=== PATIENT | female | born 1945 | race Caucasian/White ===

== ENCOUNTER 2019-05-17 12:27 | Observation (INO) | payer MEDICARE, OTHER, SELFPAY ==
[2019-05-17] VITALS (10 sets, daily range): BP systolic 116–158; BP diastolic 45–79; PULSE 68–102; RESP 14–18; TEMP 36.4–38.7; O2SAT 94–97
--- NOTE | 2019-05-17 13:04 | DI.CT_ITS ---
EXAM: CT NECK W CLINICAL HISTORY: Left throat swelling TECHNIQUE: Dual injection of 100 mL of Omnipaque 350 COMPARISON: No exams were available for comparison FINDINGS: There is swelling of the soft tissues in the neck from the level of the uvula inferiorly to just belo w the hyoid bone; findings are most marked at the left and posteriorly. There is a 2 x 1.4 x 1.7 cm fluid collection in the left parapharyngeal space consistent with an abscess. There does appear to b e narrowing of the airway at the level of the hyoid bone. The parotid and submandibular glands are unremarkable. The thyroid gland is unremarkable. Mildly enlarged lymph nodes are seen in the left neck. These are likely reactive. The arteries appear grossly unremarkable. There is mild mucosal thickening in the right maxillary sinus. The remaining visualized paranasal si nuses are clear as are the mastoid air cells. Mild to moderate degenerative changes are seen in the cervical spine. The findings are most marked a t C5-C6. There is edema seen in the soft tissues in the submandibular region. IMPRESSION: Soft tissue swelling in hypopharynx and laryngeal region. The findings are most marked on the left a nd posteriorly. There is rightward deviation and narrowing of the airway at the level of the hyoid b one. There is a 2 cm fluid collection in the left soft tissues between the uvula and epiglottis consistent with an abscess. Soft tissue edema in the left neck with reactive lymph nodes. These findings were discussed with Dr. Mckeon of the Emergency Department on the date of the examinat
[2019-05-17] MEDS: Normal Saline 1,000 ML 1000 ML IV (13:10)
[2019-05-17] MEDS: Ketorolac 15 MG/ML VIAL IVP (13:22)
[2019-05-17 13:26] LABS: Abs Immature Grans 0.04 k/cumm (0.0-0.09); Absolute Basophil Count 0.02 k/cumm (0.0-0.2); Absolute Eosinophil Count 0.03 k/cumm (0.0-0.7); Absolute Lymphocyte Count 1.23 k/cumm (1.2-3.4); Absolute Monocyte Count 0.57 k/cumm (0.11-0.7); Absolute Neutrophil Count 8.16 k/cumm (1.2-6.7); Basophils % 0.2; Eosinophils % 0.3; HCT 38.3 % (36.0-46.0); HGB 12.4 g/dL (12.0-15.5); Immature Grans % 0.4; Lymphocytes % 12.2; Mean Corp. HGB Concentration 32.4 g/dL (32.0-36.0); Mean Corpuscular Hemoglobin 30.5 pg (27.0-33.0); Mean Corpuscular Volume 94.1 fL (80-95); Mean Platelet Volume 9.8 fL (8.0-11.0); Monocytes % 5.7; Neutrophils % 81.2; Platelet Count 225 x1000/uL (130-400); RBC 4.07 m/cumm (4.00-5.20); RBC Distribution Width 13.6 % (11.7-14.6); White Blood Cell Count 10.05 k/cumm (4.4-10.8)
[2019-05-17] MEDS: ACETAMINOPHEN 1,000 MG/100 ML BTL 400 MG IVPB (13:27)
[2019-05-17] MEDS: AMPICILLIN/SULBACTAM 3 GM in Normal Saline 100 ML IVPB ×2 (13:40→20:47)
[2019-05-17 13:45] LABS: ALT 50 U/L (14-59); AST 25 U/L (15-37); Albumin 3.4 g/dL (3.4-5.0); Alkaline Phosphatase 120 U/L (46-116); Anion Gap 6.5 mmol/L (3-11); BUN 12 mg/dL (7-18); Bilirubin, Total 1.1 mg/dL (0.2-1.0); CO2 28.5 mmol/L (21.0-32.0); CREATININE 0.75 mg/dL (0.55-1.02); Calcium 8.7 mg/dL (8.5-10.1); Chloride 103 mmol/L (98-107); Glucose 87 mg/dL (70-100); Potassium 3.8 mmol/L (3.5-5.1); Sodium 138 mmol/L (136-145); Total Protein 7.4 g/dL (6.4-8.2)
--- NOTE | 2019-05-17 13:53 | ED.GENADUL_ITS ---
Discharge Plan Disposition Condition: Stable Discharge Details Chief Complaint: Sorethroat Admit Date/Time: 05/17/19 17:34 Admit Provider: Ej Guerrero Attending Provider: Deon Sagastume Primary Care Provider: Gila Lawrence V ED Provider: Lila Villanueva Discharge Instructions Activity:: Activity as Tolerated Equipment/Supplies:: No Equipment Needed Diet:: As Tolerated Discharge Orders Discharge Orders: Discharge Order (Routine); Ordered 05/18/19 Ordered By: Deon Sagastume Discharge Data Discharge Date/Time-TO BE ENTERED AT DEPARTURE: 05/17/19 18:15 Medical Decision Making <Oz Mckeon MD - Last Filed: 06/16/19 16:31> 14:00 -- 74-year-old female here with left-sided sore throat, left neck lymphadenopathy and left TM inflammation. Tachycardic and mildly dehydrated. Concern for otitis media versus deep space infection. Plan to treat with Tylenol IV, Toradol IV, Decadron PO. IV fluid bolus for dehydration. Will initiate treatment with Unasyn IV. Will obtain CT of the neck. 15:00 -- CT interpreted by radiology: left peritonsilar abscess 2cm x 1.4cm superior to left epiglottis. I called and spoke with Dr. Mercado, discussed ED presentation and course, who will review CT and call back. -- Spoke with Dr. Mercado who will be in to evaluate the patient. Care signed out to SANDRA Brand with plan to follow-up recognitions from ENT. <SANDRA Flores - Last Filed: 05/17/19 19:49> Care was signed out to myself from Dr. Mckeon with consultation pending. Dr. Mercado evaluated the patient was able to do a bedside scope. Noted left-sided vocal cord paralysis and edema of the vocal cords and surrounding structures. He does not feel that the exam and CT are consistent with abscess at this time. However, he is concerned that there is phlegm developing and did recommend admission for continued antibiotics. Patient is clinically feeling much improved after the IV dexamethasone. Dr. Mercado was also concern for edema of the uvula and a left-sided mass at the base of the tongue. He does wish to follow-up with this patient as he is concerned that a cancerous etiology is not been ruled out is unclear as to why she has a left-sided vocal cord paralysis. However, he feels that the acute issue is more of supraglottitis and recommended patient be admitted for Unasyn. If the patient is stable and not requiring further antibiotics tomorrow as recommended discharge with continued Augmentin for a total 10-day course. He would like to follow-up with the patient next week. I discussed this plan with the patient and her in depth. They voiced understanding and are agreeable to this plan. Consulted with Dr. Guerrero who agrees to admission. HPI <Oz Mckeon MD - Last Filed: 06/16/19 16:31> General Mode of arrival: ambulatory . Date/Time Provider Initiated Documentation: 05/17/19 12:34 . Limitations to Documentation: no limitations . Information obtained by: patient . HPI Narrative: 74-year-old female presents with chief complaint of sore throat. Patient notes left sided sore throat that started 3 days ago and has persisted. She has associated left ear pain. Pain is moderate to severe and worse with swallowing. She has associated fever. Related Data Home Medications Medication Instructions Recorded Confirmed epinephrine [Epipen 2-Papa] 0.3 mg IJ DIRECTED #1 pkt 02/16/15 05/17/19 amoxicillin-pot clavulanate 1 tab PO BID #19 tab 05/18/19 [Augmentin] Previous Rx's Medication Instructions Recorded epinephrine [Epipen 2-Papa] 0.3 mg IJ DIRECTED #1 pkt 02/16/15 amoxicillin-pot clavulanate 1 tab PO BID #19 tab 05/18/19 [Augmentin] Allergies Allergy/AdvReac Type Severity Reaction Status Date / Time shellfish derived Allergy Severe Anaphylaxsi Unverified 05/17/19 12:37 s venom-honey bee AdvReac Severe Anaphylaxsi Unverified 05/17/19 12:37 [bee venom (honey bee)] s stings Allergy Severe anaphylaxis Uncoded 05/17/19 12:37 General Stated Complaint: Sorethroat SEAN: 3 Review of Systems <Oz Mckeon MD - Last Filed: 06/16/19 16:31> Constitutional Constitutional: Reports fever(s) ENT Ears, Nose, Mouth, and Throat: Reports otalgia and Reports sore throat Integumentary/Breasts Skin/Breast: Denies rash PFSH <Oz Mckeon MD - Last Filed: 06/16/19 16:31> Social History Smoking/Tobacco Use Status: Never Alcohol Intake: current Alcohol Intake frequency: holidays/special occasions only Drug use: Never Do you feel safe at home: Yes Do you feel safe in your relationship?: Yes Exam <Oz Mckeon MD - Last Filed: 06/16/19 16:31> Const General: cooperative and no acute distress HENMT Ears: external ears normal, mastoids normal, no periauricular adenopathy and TM abnormal bulging on the right and erythematous on the right General nose exam: external nose normal Mouth: mucous membranes dry Teeth and gingiva: dentition normal Throat: uvula midline, posterior oropharynx abnormal erythema (left); no edema and no exudates, no uvular edema and other (no stridor, no trismus) Eyes Conjunctivae: normal conjunctivae Sclera: normal sclerae Neck Neck: trachea midline and supple Resp Auscultation: clear to auscultation bilaterally, no rales, no rhonchi and no wheezes Cardio Jugular venous pressure: no JVD Rate: tachycardic Rhythm: regular rhythm GI Palpation: soft, not firm, no guarding, no masses, not rigid and nontender Skin General skin exam: no rashes or lesions noted Neuro General: alert, awake and tone normal Course <Oz Mckeon MD - Last Filed: 06/16/19 16:31> Vital Signs Vital signs: Vital Signs Temperature 38.7 C H 05/17/19 12:31 Pulse 102 H 05/17/19 12:31 Respiratory Rate 18 05/17/19 12:31 Blood Pressure 158/71 H 05/17/19 12:31 Pulse Oximetry 95 05/17/19 12:31 Temperature 38.7 C H 05/17/19 13:22 Temperature Source Temporal Artery Scan 05/17/19 12:31 Pulse 102 H 05/17/19 12:31 Respiratory Rate 18 05/17/19 12:31 Respiratory Effort Non-Labored 05/17/19 12:35 Blood Pressure 158/71 H 05/17/19 12:31 Blood Pressure Position Sitting 05/17/19 12:31 Pulse Oximetry 95 05/17/19 12:31 Oxygen Delivery Method Room Air 05/17/19 12:31 Oxygen Flow Rate 0 05/17/19 12:31 Pain Level 9 05/17/19 13:22 Lab/Test Results Lab/Test Results: 05/17/19 12:20 Pharynx Streptococcus Screen ([facility]) - Pending Laboratory Tests Range/Units 05/17/19 05/17/19 13:10 13:10 WBC (4.4-10.8) k/cumm 10.05 RBC (4.00-5.20) m/cumm 4.07 Hgb (12.0-15.5) g/dL 12.4 Hct (36.0-46.0) % 38.3 MCV (80-95) fL 94.1 MCH (27.0-33.0) pg 30.5 MCHC (32.0-36.0) g/dL 32.4 RDW (11.7-14.6) % 13.6 Plt Count (130-400) x1000/uL 225 MPV (8.0-11.0) fL 9.8 Immature Gran % 0.4 Neutrophils % 81.2 Lymphocytes % 12.2 Monocytes % 5.7 Eosinophils % 0.3 Basophils % 0.2 Absolute Neutrophils (1.2-6.7) k/cumm 8.16 H Absolute Lymphocytes (1.2-3.4) k/cumm 1.23 Absolute Monocytes (0.11-0.7) k/cumm 0.57 Absolute Eosinophils (0.0-0.7) k/cumm 0.03 Absolute Basophils (0.0-0.2) k/cumm 0.02 Sodium (136-145) mmol/L 138 Potassium (3.5-5.1) mmol/L 3.8 Chloride (98-107) mmol/L 103 Carbon Dioxide (21.0-32.0) mmol/L 28.5 Anion Gap (3-11) mmol/L 6.5 BUN (7-18) mg/dL 12 Creatinine (0.55-1.02) mg/dL 0.75 Estimated GFR/1.73 m2 (mL/min/1.73m2) >= 60.00 Glucose (70-100) mg/dL 87 Calcium (8.5-10.1) mg/dL 8.7 Total Bilirubin (0.2-1.0) mg/dL 1.1 H AST (15-37) U/L 25 ALT (14-59) U/L 50 Alkaline Phosphatase (46-116) U/L 120 H Total Protein (6.4-8.2) g/dL 7.4 Albumin (3.4-5.0) g/dL 3.4 POC Strep Test-TILA(Rapid) Start: 05/17/19 12:44 Freq: .Rapid Strep Test Status: Active Protocol: Document 05/17/19 12:51 [facility] [place]: 05/17/19 12:51 [facility] [id number] Strep test-TILA(Rapid)-POC POC-Strep test-TILA (Rapid) Negative POC-Strep test-TILA (Rapid) Negative Sign Out <Oz Mckeon MD - Last Filed: 06/16/19 16:31> Sign Out Data: Sign Out Comment: Patient signed out to SANDRA Brand with plan to follow-up recommendations from ENT. Dr. Mercado coming in to see the patient. Last updated by Oz Mckeon MD at 05/17/19 16:38
[2019-05-17] MEDS: Dexamethasone 10 MG/ML VIAL PO (13:59)
[2019-05-17] MEDS: Omnipaque 350 MG/ML 100 ML BTL IJ (14:24)
[2019-05-17] MEDS: Lactated Ringers 1,000 ML 1000 ML IV (16:48)
--- NOTE | 2019-05-17 17:22 | W.PM.HP.N ---
Date of service: 05/17/19 Time of Service: 17:22 Assessment and Plan Assessment and plan (1) Pharyngitis: Status: Acute Assessment and plan: Pharyngitis. Will continue Unasyn per ENT recommendation. No further steroids advised. History of Present Illness History of Present Illness Chief Complaint: sore throat Narrative: 74 female here with four days sore throat. In ER evaluation of note for fever to 38.[address] demonstrating question abcess. Seen by ENT. Laryngosccopy reported to show diffuse edema but widely patent airway and findngs suggestive more of phlegmon than abcess. Left ccord paralysis notedd as well. Gonzalot received 10 Dexamethasone and initial dose Unasyn States she feels much better. ENT has requested overnight IV antibotics then presumably home on oral and f/u with ENT. The question is raised as to what the cord paralysis may indicate, perhaps some underlying lesion predisposing to current infection -- but this is to be determined with f/u with ENT. Review of Systems All systems reviewed & are unremarkable except as noted in HPI and below PFSH Social History Smoking/Tobacco Use Status: Never Alcohol Intake: current Alcohol Intake frequency: holidays/special occasions only Drug use: Never Do you feel safe at home: Yes Do you feel safe in your relationship?: Yes Meds Home Medications and Allergies Home Medications Medication Instructions Recorded Confirmed Type epinephrine [Epipen 2-Papa] 0.3 mg IJ DIRECTED #1 pkt 02/16/15 05/17/19 Rx Allergies Allergy/AdvReac Type Severity Reaction Status Date / Time shellfish derived Allergy Severe Anaphylaxsi Unverified 05/17/19 12:37 s venom-honey bee AdvReac Severe Anaphylaxsi Unverified 05/17/19 12:37 [bee venom (honey bee)] s stings Allergy Severe anaphylaxis Uncoded 05/17/19 12:37 Exam Narrative Exam Narrative: afebrile (Tmax 38.7), 129/55, 70. HEENT mild erythema left posteriorr oropharynx; no cervical nodes, but tender along left side of neck; lungs clear; hesart RRR w/o m/r/g; abdomen soft and NT; extr: w/o edema; neuro non0-focal Results Labs Result diagrams: 05/17/19 13:10 05/17/19 13:10 Labs: Laboratory Results - last 24 hr 05/17/19 05/17/19 13:10 13:10 WBC 10.05 RBC 4.07 Hgb 12.4 Hct 38.3 MCV 94.1 MCH 30.5 MCHC 32.4 RDW 13.6 Plt Count 225 MPV 9.8 Immature Gran % 0.4 Neutrophils % 81.2 Lymphocytes % 12.2 Monocytes % 5.7 Eosinophils % 0.3 Basophils % 0.2 Absolute Neutrophils 8.16 H Absolute Lymphocytes 1.23 Absolute Monocytes 0.57 Absolute Eosinophils 0.03 Absolute Basophils 0.02 Sodium 138 Potassium 3.8 Chloride 103 Carbon Dioxide 28.5 Anion Gap 6.5 BUN 12 Creatinine 0.75 Estimated GFR/1.73 m2 >= 60.00 Glucose 87 Calcium 8.7 Total Bilirubin 1.1 H AST 25 ALT 50 Alkaline Phosphatase 120 H Total Protein 7.4 Albumin 3.4 Last Vital Signs Temp 36.5 C 05/17/19 16:48 Pulse 70 05/17/19 16:48 Resp 18 05/17/19 12:31 BP 129/55 L 05/17/19 16:48 Pulse Ox 96 05/17/19 16:48
[2019-05-17] MEDS: Normal Saline Flush 10 ML SYR IVP (20:47)
[2019-05-18] MEDS: AMPICILLIN/SULBACTAM 3 GM in Normal Saline 100 ML IVPB ×2 (02:28→08:25)
[2019-05-18] MEDS: Normal Saline Flush 10 ML SYR IVP ×2 (02:29→08:25)
[2019-05-18 07:20] VITALS: BP 129/68; PULSE 66; RESP 16; TEMP 37.3; O2SAT 96
--- NOTE | 2019-05-18 11:12 | W.PM.DS.N ---
Date of service: 05/18/19 Time of Service: 11:12 DS: Diagnosis Discharge Diagnosis (1) Pharyngitis: Status: Acute Discharge Plan Disposition Patient Disposition: HOME Condition: Stable Discharge Details Chief Complaint: Sorethroat Reason For Visit: PHARYNGITIS Admit Date/Time: 05/17/19 17:34 Admit Provider: Ej Guerrero Attending Provider: Ej Guerrero Primary Care Provider: Gila Lawrence V ED Provider: Lila Villanueva Hospital Course Hospital Course: Chief Complaint: Sore Throat HPI: Very pleasant 74-year-old woman admitted from [facility] emergency department on 05/17 with a diagnosis of pharyngitis. Mrs. Meza presented to the ED with a complaint of left-sided throat pain. Initial work-up was remarkable for essentially normal CBC and CMP, but with subsequent CT of the neck showing soft tissue swelling with concern for peritonsillar abscess. ENT was consulted, and the patient underwent a bedside scope by Dr. Mercado who noted a left-sided vocal cord paralysis, and edema of the vocal cords and surrounding structures. Significantly, he did not believe that the CT findings and examination were consistent with abscess, but was concerned regarding a potential mass at the base of the tongue per review of the ED note. There was also evidence of some phlegmon in the area, prompting recommendations for administration of steroids and initiation of IV antibiotics, with admission for overnight observation. Plan was that if the patient remains stable and improved, for discharge home with oral amoxicillin/clavulanate for a total 10-day course of antibiotics, no further steroid therapy, and prompt follow-up in the office for further work-up of suspected above-mentioned lesion. This morning Mrs. Meza feels well and tolerated her breakfast. Plan was discussed with her in detail, and a follow-up with Dr. Tello Mercado was arranged. She is being discharged in improved condition. She also understands that if her symptoms worsen she is to return to the ED. She also expresses understanding of the importance of follow-up for further evaluation of a suspected lesion/mass by Dr. Mercado. Home Meds and New Rx's Prescriptions: New amoxicillin-pot clavulanate [Augmentin] 875-125 mg tablet 1 tab PO BID Qty: 19 RF: 0 No Action epinephrine [EpiPen 2-Papa] 0.3 MG/0.3 ML auto-injector 0.3 mg IJ DIRECTED Qty: 1 RF: 0 Discharge Instructions Stand Alone Forms: Nursing Discharge Form Referrals: Elfego Mercado MD [ [facility] STAFF PHYSICIAN] - 05/23/19 7:45 am (in [place]) Activity:: Activity as Tolerated Equipment/Supplies:: No Equipment Needed Diet:: As Tolerated Discharge Orders Discharge Orders: Discharge Order (Routine); Ordered 05/18/19 Ordered By: Deon Sagastume DS: Summary Status at Discharge Functional status at discharge: independent ambulation Overall status at discharge: patient is back to baseline Mental Status: mental status grossly normal Speech and Movement: speech and movement normal Mood: congruent mood Affect: normal affect Exam Psych Mental Status: mental status grossly normal Speech and Movement: speech and movement normal Mood: congruent mood Affect: normal affect DS: Data Vitals/I&O Vitals and I&O: Vital Signs Temperature 37.3 C 05/18/19 07:20 Temperature Source Tympanic 05/18/19 07:20 Pulse 66 05/18/19 07:20 Pulse Rhythm Regular 05/18/19 08:20 Respiratory Rate 16 05/18/19 07:20 Respiratory Effort Non-Labored 05/18/19 08:20 Respiratory Depth Normal 05/18/19 08:20 Respiratory Pattern Normal 05/18/19 08:20 Blood Pressure 129/68 05/18/19 07:20 Blood Pressure Mean 84 05/17/19 17:58 Blood Pressure Position Sitting 05/17/19 12:31 Pulse Oximetry 96 05/18/19 07:20 Oxygen Delivery Method Room Air 05/18/19 07:20 Oxygen Flow Rate 0 05/18/19 07:20 Pain Level 0 05/18/19 07:20 Intake & Output 05/17/19 05/17/19 05/18/19 11:59 23:59 11:59 Intake Total 3060 / 3060 470 / 470 Balance 3060 / 3060 470 / 470 Weight 65.317 kg Intake: IV 2320 / 2320 230 / 230 Oral 740 / 740 240 / 240 Other: Urine Appearance Clear Clear Comment pt voiding independently. voids independently in [place]. Voiding Methods Toilet Toilet Data Completed and Pending Completed studies during hospitalization [Text1]: Exam(s) 05/17/[address]:CT neck w EXAM: CT NECK W CLINICAL HISTORY: Left throat swelling TECHNIQUE: Dual injection of 100 mL of Omnipaque 350 COMPARISON: No exams were available for comparison FINDINGS: There is swelling of the soft tissues in the neck from the level of the uvula inferiorly to just below the hyoid bone; findings are most marked at the left and posteriorly. There is a 2 x 1.4 x 1.7 cm fluid collection in the left parapharyngeal space consistent with an abscess. There does appear to be narrowing of the airway at the level of the hyoid bone. The parotid and submandibular glands are unremarkable. The thyroid gland is unremarkable. Mildly enlarged lymph nodes are seen in the left neck. These are likely reactive. The arteries appear grossly unremarkable. There is mild mucosal thickening in the right maxillary sinus. The remaining visualized paranasal sinuses are clear as are the mastoid air cells. Mild to moderate degenerative changes are seen in the cervical spine. The findings are most marked at C5-C6. There is edema seen in the soft tissues in the submandibular region. IMPRESSION: Soft tissue swelling in hypopharynx and laryngeal region. The findings are most marked on the left and posteriorly. There is rightward deviation and narrowing of the airway at the level of the hyoid bone. There is a 2 cm fluid collection in the left soft tissues between the uvula and epiglottis consistent with an abscess. Soft tissue edema in the left neck with reactive lymph nodes. Labs on day of discharge: Labs from last 24 hours 05/17/19 05/17/19 13:10 13:10 WBC 10.05 RBC 4.07 Hgb 12.4 Hct 38.3 MCV 94.1 MCH 30.5 MCHC 32.4 RDW 13.6 Plt Count 225 MPV 9.8 Immature Gran % 0.4 Neutrophils % 81.2 Lymphocytes % 12.2 Monocytes % 5.7 Eosinophils % 0.3 Basophils % 0.2 Absolute Neutrophils 8.16 H Absolute Lymphocytes 1.23 Absolute Monocytes 0.57 Absolute Eosinophils 0.03 Absolute Basophils 0.02 Sodium 138 Potassium 3.8 Chloride 103 Carbon Dioxide 28.5 Anion Gap 6.5 BUN 12 Creatinine 0.75 Estimated GFR/1.73 m2 >= 60.00 Glucose 87 Calcium 8.7 Total Bilirubin 1.1 H AST 25 ALT 50 Alkaline Phosphatase 120 H Total Protein 7.4 Albumin 3.4 05/17/19 12:20 Pharynx Streptococcus Screen ([facility]) - Pending Preliminary micro results at discharge 05/17/19 12:20 Streptococcus Screen ([facility]) - Pending Pharynx PFSH Social History Smoking/Tobacco Use Status: Never Alcohol Intake: current Alcohol Intake frequency: holidays/special occasions only Drug use: Never Do you feel safe at home: Yes Do you feel safe in your relationship?: Yes
--- NOTE | 2019-05-18 12:18 | PDOC.CMDIS ---
- If Service Date Differs Date of service: 05/18/19 Time of Service: 12:18 LACE Index Scoring Tool - Questions: Length of Stay (in days): 1 Acuity (Admit via E.D.?): Yes Comorbidities: Any Tumor E.D. Visits: 1 - Answers: Total Score: 7 Risk of Readmission: Low Risk Care Management Discharge Reason for Hospitalization: Pharyngitis Discharge Plan: Fatmata reports she is indepedent and does not need any supports at this time. She states that she is indepedent and is ready for discharge. She has a follow up scheduled with ENT in a week. Fatmata will transport home with family at time of discharge. Patient/Family Education Needs: discharge education, limitations and follow up plan of care.
--- NOTE | 2019-05-18 15:08 | ECONE_ITS ---
May 17, 2019 REASON FOR CONSULT: Question of peritonsillar abscess. ASSESSMENT: The patient appears to have two issues. 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 The left vocal cord paralysis I cannot explain at this point in time. It is possible that this represents neoplastic process or could be a longstanding problem based on her history of head injury. PLAN: I reviewed the findings with the Hospitalist as well as with the Emergency Room physician. I recommended that they hospitalize her with Unasyn overnight, with no further steroids, to make sure that we do not mask any symptoms. Assuming that she continues to feel better and better through the night and into tomorrow, I believe that she can be discharged to home on oral antibiotics with instructions to return should her symptoms worsen. I would recommend Augmentin at 875 mg b.i.d. I would also want to follow-up with her in 1 week's time. cc to primary care provider HISTORY OF PRESENT ILLNESS: The patient reports that she has a history of intermittent sore throats in the past with no recent voice changes. She does note intermittent hoarseness in the past. On Thursday, with no antecedent illness, injury or event, she began to develop a sore throat that she localized to the left side of her throat. She noted that this made things progressively more difficult as far as swallowing. She managed this with liquid Ibuprofen until today when her insisted that she be seen and she came to the Emergency Room. She has run low-grade fevers only with a maximum of 100 degrees. In the Emergency Room, she was seen and evaluated and a CBC was performed revealing a white count of 10 with no shift. She also underwent a CT scan of her neck which revealed some edema in the supraglottis and a question of a right-sided peritonsillar abscess based on Radiology review. The patient notes that she was given steroids and Unasyn and notes that her throat is feeling dramatically better now. She notes that she is able to handle her secretions without difficulty. She notes that she feels no shortness of breath. She notes no similar problems in the past. RADIOLOGY STUDIES: I reviewed the CT scan. This reveals diffuse edema of the supraglottis as well as the epiglottis and uvula. There is a hypodense region at the right tongue base and significant of the arytenoids. There is no distinct abscess that I can appreciate. There is no significant lymphadenopathy within the neck. Her airway appears stable on the CT scan. PAST MEDICAL HISTORY: Significant for several head injuries including a skull fracture and orthopedic injuries. PAST SURGICAL HISTORY: Orthopedic repairs. SOCIAL HISTORY: Nonsmoker, nondrinker, . REVIEW OF SYSTEMS: Negative for cardiac, respiratory, gastrointestinal, genitourinary, hematologic, neurologic or endocrine problems. No history of skin cancers. FAMILY HISTORY: Unremarkable. CURRENT MEDICATIONS: None. DRUG ALLERGIES: None. PHYSICAL EXAMINATION: Awake, alert and oriented x 3. In no acute distress. Not demonstrating any difficulty swallowing, voice is strong with no stridor or stertor. There is no distinct hoarseness. Airway appears stable. She is interacting appropriately with her and me. HEENT - normocephalic with normal facIes. Nasal examination is unremarkable. Ear examination is unremarkable. Oropharyngeal examination reveals watery edema and erythema of the uvula and the anterior pillars of the tonsils bilaterally. The tonsils are 1+ and symmetric with no peritonsillar swelling otherwise. There is no exudate or erythema of the tonsils. The posterior pharyngeal wall appears unremarkable. The tongue and tongue base appear normal to examination. She can extrude her tongue well. There is no floor of mouth elevation. I cannot visualize her hypopharynx and larynx using a mirror Neurological - cranial nerves II-XII bilaterally equal and intact although she does have a left vocal cord paralysis on scope as mentioned below. Heart - regular rate and rhythm. Chest - clear to auscultation. Neck - supple with full range of motion with subtle lymphadenopathy on the left. The larynx is mobile. PROCEDURE: Flexible laryngoscopy. After discussion with the patient, flexible laryngoscopy was performed to the left nares. The scope was passed easily into the nasopharynx which was unremarkable and into the oropharynx which reveals mild edema of the uvula and tonsillar pillars but no other significant findings. Examination of the tongue base reveals some subtle fullness of the left tongue base and the epiglottis and the arytenoids demonstrated diffuse, erythematous, watery edema but the airway appears stable. Left vocal cord paralysis is noted while the right vocal cord appears to move well. The glottic opening is widely patent. There is no edema of the vocal cords themselves.
== END 2019-05-18 12:22 | disposition home or self-care (01) ==
LOC: ER 17:59 → MS 18:20
PROVIDERS: Student in an Organized Health Care Education/Training Program; Admitting Provider General Practice; Emergency Provider Physician Assistant; PCP Family Medicine; Visit Provider Internal Medicine
DX: K12.2 Cellulitis and abscess of mouth (principal); J04.30 Supraglottitis, unspecified, without obstruction; J38.01 Paralysis of vocal cords and larynx, unilateral; D37.02 Neoplasm of uncertain behavior of tongue; J02.9 Acute pharyngitis, unspecified
CPT/HCPCS: 31575; 36415; 70491; 80053; 87880; 96361; 96365; 96375; 99217; 99222; 99285; 85025; 87081; 99219; 99284; G0378; J0131; J0295; J1100; J1885; J3490

== ENCOUNTER 2020-02-06 01:18 | Outpatient (CLI) | payer MEDICARE, OTHER, SELFPAY ==
--- NOTE | 2020-02-06 | DI.MAMMO_ITS ---
EXAM: MAMMO SCREENING CLINICAL HISTORY: SCREENING, Z12.39 TECHNIQUE: Mammograms were interpreted according to the usual protocol including computer analysis w HEMING[employer]AY CAD system, tomosynthesis and C-view imaging. COMPARISON: FINDINGS: The breasts are heterogeneously dense. No dominant mass or clumped microcalcification is identified in either breast. The current examination is compared with previous examination is including July 2015 and there is question of interval development new area nodular radiodensity irregular borders p rojected in the upper outer quadrant of right breast. Additional mammographic views of this area are requested to include CC and MLO spot compression views of the right breast. No other significant change seen. IMPRESSION: Additional mammographic views of the right breast requested as described above. Breast ultrasound ma y be indicated as well depending on the results of the additional mammographic views. BI-RADS Category 0 - Assessment Incomplete: Need additional imaging evaluation Breast Density - Category C - Heterogeneously dense
== END 2020-02-06 01:38 ==
PROVIDERS: PCP Nurse Practitioner Family; Visit Provider Nurse Practitioner Family
DX: Z12.31 Encounter for screening mammogram for malignant neoplasm of breast (principal); R92.2 Inconclusive mammogram
CPT/HCPCS: 77063; 77067

== ENCOUNTER 2020-02-15 02:09 | Outpatient (CLI) | payer MEDICARE, OTHER, SELFPAY ==
--- NOTE | 2020-02-15 | DI.MAMMO_ITS ---
EXAM: MG MAMMO SCREEN CALL BACK UNI CLINICAL HISTORY: F/U MAMMO, INTERVAL DEVELOPMENT NEW NODULAR RADIODENSITY,UOQ RT BREAST. TECHNIQUE: Craniocaudal and mediolateral oblique Full Field Digital Mammography views of the right b reast with Computer Aided Diagnosis followed by Tomosynthesis and right breast ultrasound. COMPARISON: Priors available for comparison. FINDINGS: Mammography/Tomosynthesis: Masses/Architectural Distortion: None seen. Microcalcifictions: No suspicious pleomorphic-type are seen. Skin Thickening/Nipple Retraction: None. Right breast US: Echotexture: Normal appearance of the glandular tissue. Shadowing: No suspicious foci. Cyst: None. Solid lesions: None seen. Ductal dilation: None. IMPRESSION: 1. No evidence of malignancy is noted. 2. Unless there is more urgent need, follow-up screening mammography is recommended, as per [place] [employer] guidelines. 3. The findings were discussed with the patient on the date of the examination. BI-RADS Category 1 - Negative Breast Density - Category B - Scattered areas of fibroglandular density A negative radiographic report should not delay biopsy if a dominant or clinically suspicious mass is present. Up to ten percent of cancers are not identified on mammography. A negative report may reinforce clinical impression. Adenosis and dense breasts may obscure an underlying neoplasm. False positive reports average 6 to 10%. Patient will receive a letter notifying them of these results.
[2020-02-15 08:21] LABS: Calculated LDL 128 mg/dL (<100); Cholesterol 214 mg/dL (<200); Glucose 99 mg/dL (74-106); HDL Cholesterol 79 mg/dL (40-60); Triglyceride 39 mg/dL (<150)
== END 2020-02-15 02:29 ==
PROVIDERS: PCP Nurse Practitioner Family; Visit Provider Nurse Practitioner Family
DX: Z12.31 Encounter for screening mammogram for malignant neoplasm of breast (principal); R92.8 Other abnormal and inconclusive findings on diagnostic imaging of breast; N64.59 Other signs and symptoms in breast; E78.5 Hyperlipidemia, unspecified
CPT/HCPCS: 36415; 76642; 77063; 77067; 80061; 82947

== ENCOUNTER 2022-07-25 16:44 | Emergency (ER) | payer MEDICARE, OTHER, SELFPAY ==
[2022-07-25] VITALS (17 sets, daily range): BP systolic 167–178; BP diastolic 69–77; PULSE 65–90; RESP 5–39; TEMP 36.4; O2SAT 95–99
--- NOTE | 2022-07-25 16:45 | RT.EKG_ITS ---
APPROVED REPORT Exam: Resting ECG Reason for Exam: chest heaviness Patient Location: E HR:70 bpm ECG Measurements Heart Rate 70 AXIS MS 150 P 54 QRSd 87 QRS -59 QT 368 T 42 QTc 398 Conclusion Sinus rhythm...normal P axis, V-rate 60- 99 Inferior infarct, old...Q >35mS, II III aVF Left [place]
--- NOTE | 2022-07-25 16:51 | ED.GENADUL_ITS ---
Discharge Plan Disposition Patient Disposition: Home Condition: Good Discharge Details Clinical Impression: Dyspnea, Weakness Primary Care Provider: Delia Saravia ED Provider: Keven Gamboa Home Meds and New Rx's Prescriptions: Continued epinephrine [EpiPen 2-Papa] 0.3 MG/0.3 ML auto-injector 0.3 mg IJ DIRECTED Qty: 1 0RF Discharge Instructions Instructions: Chest Pain (ED), Weakness (ED), Dyspnea (ED) Additional Instructions: While your work in the ED is reassuring I do not currently have a good explanation for your symptoms. I do think close follow-up with primary care and stress testing ANUJ is appropriate. If you develop any chest pain, worsening shortness of breath, neurologic change, fever, syncope, other concerns please return to the ED immediately. Medical Decision Making Patient presents to ED with chief complaint of generalized weakness, fatigue, shortness of breath with previous episode of chest heaviness and throat burning 2 mornings ago. Her EKG shows no acute ST changes. She does appear to have Q waves in her inferior limb leads and there is no old to compare to. She has had no chest pain or heaviness since Thursday morning. However, she has not been able to do her daily tasks as she normally does since that morning. Her exam is unremarkable. Laboratory studies and chest x-ray ordered. Patient's chest x-ray per my review is unremarkable with no acute cardiopulmonary findings noted. Laboratory studies are also unremarkable with normal white count and hemoglobin, normal kidney function, electrolytes, liver function. Troponin is negative. D-dimer is positive even with correction for age and thus will obtain CTA of chest. CTA chest negative for PE or any acute pathology. Noted to have 2 small nodules but is not considered high risk and does not need specific follow-up. Spoke at length with the patient and her [id number]. I am somewhat concerned that her episode of chest pain on Thursday may have been cardiac in nature but she has negative troponin after only 48 hours and does not have acute ST changes on her EKG. She has already called her PCP which is why she ended up in the ED at their insistence. She ensures me that she will follow-up next week and I do think she should have stress test to close the loop regarding her episode of chest pain. Patient will return to ED if she has any recurrent chest pain, worsening shortness of breath, lightheadedness, neurologic change, other concerns. Lab Data Lab results reviewed: Yes I reviewed the patient's lab results. ECG Data Attestation: I personally reviewed and interpreted this ECG (s) as follows: Prior ECG tracings: not available for review Interpretation: see EKG HPI General Mode of arrival: ambulatory . Date/Time Provider Initiated Documentation: 07/25/22 16:50 . Limitations to Documentation: no limitations . Information obtained by: patient . HPI Narrative: Patient presents to the ED with a 2-day history of chest heaviness and throat burning that occurred Thursday morning when she woke up. It was associated with nausea but no vomiting. She had no lightheadedness or sweating. She was really not able to do anything that day. 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 Yesterday, , she was extremely weak and tired. She is more short of breath than she usually is. She has not really had any further chest pain or heaviness. She has had no abdominal pain, black stool, bloody stool. She has no leg pain or leg swelling. She has no significant past medical history and does not take medications on a regular basis. She does not smoke. 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 [id number] tried to get her to come in yesterday and Thursday. Today patient was barely able to get back from the barn to her house because she was so weak, tired, short of breath. Related Data Home Medications Medication Instructions Recorded Confirmed epinephrine 0.3 mg/0.3 mL 0.3 mg (0.3 mL) IJ DIRECTED ##1 02/16/15 07/25/22 injection, auto-injector (EpiPen 2-Papa) Previous Rx's Medication Instructions Recorded epinephrine 0.3 mg/0.3 mL 0.3 mg (0.3 mL) IJ DIRECTED ##1 02/16/15 injection, auto-injector (EpiPen 2-Papa) Allergies Allergy/AdvReac Type Severity Reaction Status Date / Time shellfish derived Allergy Severe Anaphylaxsi Unverified 05/17/19 12:37 s venom-honey bee AdvReac Severe Anaphylaxsi Unverified 05/17/19 12:37 [bee venom (honey bee)] s stings Allergy Severe anaphylaxis Uncoded 05/17/19 12:37 General SEAN: 3 Review of Systems Narrative: Per HPI PFSH All Active Problems (Updated 07/25/22 @ 19:01 by Keven Gamboa MD) Dyspnea (Acute) Weakness (Acute) Odynophagia (Acute) Paralysis of left vocal cord (Acute) Supraglottitis without airway obstruction (Acute) Pharyngitis (Acute) Medical History No significant past medical history Surgical History S/P rotator cuff repair Social History Smoking/Tobacco Use Status: Never Smoking risk assessment performed?: Yes Alcohol Intake: current Alcohol Intake frequency: holidays/special occasions only Drug use: Never Do you feel safe at home: Yes Do you feel safe in your relationship?: Yes Exam Narrative Exam Narrative: Const: WDWN female in NAD. HEENT: NC/AT. Normal facial exam. Eyes: Normal conjunctiva and sclera. Neck: Supple. Trachea midline. Lungs: Normal respiratory effort. Lungs are clear. Cor: RRR without murmur/gallop. Good radial pulses. GI: Soft. NT/ND. No guarding or rebound. Neuro: A+O x 3. Normal speech, mentation, gait. Cranial nerves II - XII grossly intact. No gross motor or sensory deficit. Ext: No C/C/E. No calf tenderness. Skin: Warm and dry without rash.
--- NOTE | 2022-07-25 17:00 | DI.RAD_ITS ---
Exam(s) XR CHEST 2V PA LATERAL EXAM: XR CHEST 2V PA LATERAL CLINICAL HISTORY: CP/SOB. TECHNIQUE: 2D digital imaging was performed. COMPARISON: No exams were available for comparison FINDINGS: 2 views: Heart size is normal. The mediastinum is not widened. Lungs are clear. No infiltrates nor pleural effusions. IMPRESSION: No acute pulmonary findings. DATA REPOSITORY: RADIATION DOSE DELIVERED:
[2022-07-25 17:15] LABS: Absolute Basophil Count 0.03 10^3/uL (0.0-0.2); Absolute Eosinophil Count 0.16 10^3/uL (0.0-0.7); Absolute Lymphocyte Count 2.04 10^3/uL (1.2-3.4); Absolute Monocyte Count 0.42 10^3/uL (0.1-0.8); Absolute Neutrophil Count 1.99 10^3/uL (1.2-6.7); Basophils % 0.6; Eosinophils % 3.4; HCT 40.1 % (36.0-46.0); HGB 13.1 g/dL (11.2-15.7); MCH 29.5 pg (27.0-33.0); MCHC 32.7 % (32.0-36.0); MCV 90 fL (80-95); MPV 9.2 fL (8.0-11.0); Monocytes % 9.1; Neutrophils % 42.9; Platelet Count 211 10^3/uL (130-400); RBC 4.44 10^6/uL (3.93-5.22); RDW 13.1 % (11.7-14.6); WBC 4.64 10^3/uL (4.4-10.8)
[2022-07-25 17:35] LABS: ALT 28 U/L (14-59); AST 30 U/L (15-37); Albumin 3.6 g/dL (3.4-5.0); Alkaline Phosphatase 102 U/L (46-116); Anion Gap 6.8 mmol/L (3-11); BUN 20 mg/dL (7-18); Bilirubin, Total 0.4 mg/dL (0.2-1.0); CO2 29.2 mmol/L (21.0-32.0); CREATININE 0.9 mg/dL (0.55-1.02); Calcium 9.1 mg/dL (8.5-10.1); Chloride 104 mmol/L (98-107); Estimated GFR 66.26 (mL/min/1.73m2); Glucose 95 mg/dL (74-106); Potassium 4.1 mmol/L (3.5-5.1); Sodium 140 mmol/L (136-145); Total Protein 7.5 g/dL (6.4-8.2); Troponin I < 50 ng/L (<or=60)
--- NOTE | 2022-07-25 17:42 | DI.VRAD_ITS ---
PROCEDURE INFORMATION: Exam: XR Chest Exam date and time: 07/25/2022 5:35 PM Age: 77 years old Clinical indication: Other: Cp/sob TECHNIQUE: Imaging protocol: Radiologic exam of the chest. Views: 2 views. COMPARISON: No relevant comparison study. FINDINGS: Lungs: Unremarkable. No consolidation. Pleural spaces: Unremarkable. No pleural effusion. No pneumothorax. Heart/Mediastinum: Unremarkable. No cardiomegaly. Bones/joints: Multilevel degenerative changes of the spine. Degenerative changes of the right and left shoulder. IMPRESSION: No acute cardiopulmonary findings. Dictated and Authenticated by: Archana Aguirre MD. Ordering:MERRILL Baca MD
[2022-07-25 17:45] LABS: D-Dimer 1079 ng/mlFEU (<500)
--- NOTE | 2022-07-25 17:45 | DI.CT_ITS ---
Exam(s) CT CHEST PE CTA EXAM: CT CHEST PE CTA CLINICAL HISTORY: SOB w + d-dimer. TECHNIQUE: Imaging Protocol: CT angiography of the chest was performed using pulmonary embolus kriss col. Multi planar reconstructions were performed. CONTRAST MATERIAL: Intravenous: Omnipaque 350 Contrast volume: 100 cc COMPARISON: CT CERVICAL SPINE WITHOUT CONTRA from 09/02/2014 FINDINGS: CHEST: PULMONARY ARTERIES: There are no intraluminal filling defects to suggest acute pulmonary emboli. LUNGS: No infiltrates nor pleural effusions. No pneumothorax. There is a 5 millimeter noncalcified nodule in the peripheral aspect of the right lower lobe with no other focal right lung findings. The re are two noncalcified nodules in the left lower lobe.. 3 millimeter noncalcified nodules in the le ft lower lobe. There are no pleural effusions. MEDIASTINUM: There is no hilar nor mediastinal adenopathy. Visualized thyroid unremarkable. CARDIAC: Heart size is upper normal. There is no pericardial effusion.Caliber of the thoracic aorta is within normal limits. No dissection. There is no significant shift of the interventricular septum . PARTIALLY VISUALIZED UPPERMOST ABDOMEN: No obvious findings OSSEOUS: No significant osseous lesions.. IMPRESSION: 1. No evidence of acute pulmonary emboli. No evidence of pulmonary infarction. No confluent infiltr ates. No pleural effusions. No intrathoracic adenopathy. 2. There is a 5 millimeter noncalcified nodule in the right lower lobe and there are 2 smaller 3 mill imeter. Recommend follow-up CT scan in 6 months to ensure stability. RADIATION DOSE DELIVERED: 321.1mGy.cm Total DLP DATA REPOSITORY: All CT scans at this facility are submitted to the National Radiology Data Registry (NRDR) Dose Index Registry (DIR) with the [employer] (ACR). RADIATION OPTIMIZATION: All CT scans at this facility use at least one of these dose optimization te chniques: automated exposure control; mA and/or kV adjustment per patient size (includes targeted exa ms where dose is matched to clinical indication); or iterative reconstruction.
--- NOTE | 2022-07-25 18:32 | DI.VRAD_ITS ---
PROCEDURE INFORMATION: Exam: CTA Chest With Contrast Exam date and time: 07/25/2022 6:03 PM Age: 77 years old Clinical indication: Other: SOB w + d-dimer TECHNIQUE: Imaging protocol: Computed tomographic angiography of the chest with contrast. 3D rendering (Not supervised by radiologist): MIP and/or 3D reconstructed images were created by the technologist. Total images: 1423 Contrast material: OMNIPAQUE 350; Contrast volume: 100 ml; Contrast route: INTRAVENOUS (IV); COMPARISON: CR XR CHEST 2V PA LATERAL 07/25/2022 5:35 PM FINDINGS: Pulmonary arteries: No evidence of pulmonary embolism. Aorta: No evidence of aortic dissection. Other arteries: Mild atherosclerotic disease is evident. Lungs: Bilateral hyperinflation is present. No focal pneumonia or pneumothorax. 5 mm nodule present within the right lower lobe and 3 mm nodule present within the left upper lobe. Pleural spaces: See Lungs finding. Heart: Unremarkable. No cardiomegaly. No pericardial effusion. Lymph nodes: No mediastinal or axillary lymphadenopathy. Diaphragm: A small hiatal hernia is present. Bones/joints: The thoracic spine demonstrates mild degenerative changes at multiple levels. Soft tissues: Unremarkable. IMPRESSION: 1. No evidence of pulmonary embolism. 2. No evidence of aortic dissection. 3. Bilateral hyperinflation is present. 4. No mediastinal or axillary lymphadenopathy. 5. No focal pneumonia or pneumothorax. 6. 5 mm nodule present within the right lower lobe and 3 mm nodule present within the left upper lobe. For patients at low risk (minimal or absent history of smoking and of other known risk factors), no routine follow-up is indicated. For patients at high risk (history of smoking or of other known risk factors), consider optional CT Chest at 12 months. (Reference: Callie) REFERENCES: Callie Ha, et al. Guidelines for Management of Incidental Pulmonary Nodules Detected on CT Images: From the Fleischner Society 2017. Radiology. 2017;284(1):228-243. Dictated and Authenticated by: Jose Ash MD. Ordering:MERRILL Baca MD
== END 2022-07-25 19:20 | disposition home or self-care (01) ==
PROVIDERS: Emergency Provider Emergency Medicine; PCP Nurse Practitioner Family
DX: R06.02 Shortness of breath (principal); R53.1 Weakness; R53.83 Other fatigue; R91.8 Other nonspecific abnormal finding of lung field
CPT/HCPCS: 36415; 71275; 80053; 93005; 99285; 71046; 83735; 84484; 85025; 85379; 93010

== ENCOUNTER 2022-08-01 13:26 | Outpatient (CLI) | payer MEDICARE, SELFPAY | END 2022-08-01 13:27 | disposition home or self-care (01) | LOC: CARDOPNVT 13:26 | PROVIDERS: PCP Nurse Practitioner Family; Visit Provider Nurse Practitioner Family | DX: I49.9 Cardiac arrhythmia, unspecified (principal) | CPT/HCPCS: 93246 ==

== ENCOUNTER 2022-08-07 01:09 | Outpatient (CLI) | payer MEDICARE, SELFPAY ==
--- NOTE | 2022-08-07 | ETT_ITS ---
APPROVED REPORT Exam: Exercise Treadmill Patient Location: Out-Patient Room/Bed: Stress Nurse: Shreya Patton RN Ordering Provider:ALEJANDRO KHAN, Contact Number: [phone] BMI: 28.90 Baseline Rhythm: Sinus Rhythm Indications: Chest pressure Medical History Medical History: Irregular cardiac rhythm, hx of TBI Cardiac Medications: None Allergies: Bee stings, shellfish Cardiac Risk Factors: Family hx Previous Cardiac Procedures: None Pretest Chest Pain Characteristics: R side back pain and pressure 4/10 Exercise History: Physically active Physical Disabilities: None Lung Sounds: Clear to auscultation Heart Sounds: Regular Stress Test Details Test: Exercise stress testing was performed using a Galen protocol. Rest Stress HR Resting HR Supine: 76 bpm Max Heart Rate (APMHR): 144 bpm Resting HR Standin bpm Target HR (85% APMHR): 122 bpm Max HR Achieved: 164 bpm % of APMHR: 114 Recovery HR: 92 bpm HR response to stress: Normal HR response to stress BP Resting BP Supine: 150/70 mmHg Resting BP Standin/82 mmHg Max BP: 180/82 mmHg Recovery BP: 142/62 mmHg BP response to stress: Normal blood pressure response to stress. ECG Resting ECG: Sinus Rhythm Ectopy: None Stress ECG: Sinus Tachycardia ST Change: No significant ST segment changes noted Arrhythmia: Occasional PACs and PVCs, rare couplets Recovery ECG: Sinus Rhythm Recovery ST Change: No significant ST segment changes noted Recovery Arrhythmia: Occasional PVCs and couplets Clinical Reason for Termination: Target HR Achieved Stress Symptoms: General Fatigue, R side back pain and pressure 4/10 Exercise duration: 9 min33 sec Exercise capacity: 11.03 METs Rate Pressure Product: [id number] Stress ECG Conclusion 1. Resting electrocardiogram shows left anterior fascicular block 2. Patient exercised on Galen protocol and completed a workload of 11.03 METS 3. Normal heart rate and blood pressure response to exercise. The patient achieved greater than 100% of predicted heart rate for age 4. There was no electrocardiographic evidence of myocardial ischemia 5. There were rare atrial and ventricular ectopic beats Stress Test Summary STAGE Time (mins) Speed (mph) Grade (%) HR BP SpO2 SYMPTOMS METS Supine 76 150/70 Standing 94 146/82 95% Baseline back pain and pressure 4/10 1 3 1.7 10 130 158/80 96% 4.5 2 6 2.5 12 150 174/88 96% 7 3 9 3.4 14 156 98% 10 4 12 4.2 16 164 98% 13 1 min recovery 140 180/82 98% 3 min recovery 96 170/68 98% 6 min recovery 92 142/62 98% Pt reported baseline back pain and pressure 4/10 that sometimes moves to front of chest. This baselin e pain did not change during test; remained 4/10 in back only.
== END 2022-08-07 01:29 ==
LOC: DI 01:10
PROVIDERS: PCP Nurse Practitioner Family; Visit Provider Nurse Practitioner Family
DX: R07.89 Other chest pain (principal)
CPT/HCPCS: 93016; 93018; 93017

== ENCOUNTER 2022-08-25 07:31 | Outpatient (CLI) | payer MEDICARE, SELFPAY ==
--- NOTE | 2022-08-25 09:05 | W.CARDEVENT ---
Date of service: 08/25/22 Time of Service: 09:05 Cardiac Event Recorder Referring Provider:: Roslyn Eaton Indications:: Cardiac arrhythmia Cardiac Event Note: This is a 14-day cardiac event monitor. Predominant rhythm was sinus with an average heart rate of 80. Minimum was 54, maximum 137 There were rare ventricular ectopic beats There were rare to occasional atrial premature beats. There were multiple ( 38) brief self-limited atrial runs There was no atrial fibrillation, no high-grade AV block, no pauses greater than 3 seconds Patient's symptoms were reported which corresponded to sinus rhythm rate 100/min
== END 2022-08-25 07:32 | disposition home or self-care (01) ==
LOC: CARDOPNVT 07:31
PROVIDERS: PCP Nurse Practitioner Family; Visit Provider Internal Medicine Cardiovascular Disease
DX: I49.1 Atrial premature depolarization (principal)
CPT/HCPCS: 93248

== ENCOUNTER 2022-09-26 17:11 | Outpatient (REF) | payer MEDICARE, SELFPAY ==
[2022-09-29 12:42] LABS: Lyme Ab w Rflx to Lyme Confirm Negative (Negative)
[2022-10-01 15:49] LABS: Anaplasma phagocytophilum Negative (Negative); B. miyamotoi PCR Negative (Negative); Babesia divergens/MO-1 Negative (Negative); Babesia duncani Negative (Negative); Babesia microti Negative (Negative); Ehrlichia chaffeensis Negative (Negative); Ehrlichia ewingii/canis Negative (Negative); Ehrlichia muris eauclairensis Negative (Negative)
== END 2022-09-26 17:12 | disposition home or self-care (01) ==
LOC: NCHCN 17:11
PROVIDERS: PCP Nurse Practitioner Family; Visit Provider Nurse Practitioner Family
DX: M25.50 Pain in unspecified joint (principal); W57.XXXA Bitten or stung by nonvenomous insect and other nonvenomous arthropods, initial encounter; T14.8XXA Other injury of unspecified body region, initial encounter
CPT/HCPCS: 87798; 86618

== ENCOUNTER 2022-11-09 11:45 | Emergency (ER) | payer MEDICARE, SELFPAY ==
[2022-11-09 11:48] VITALS: BP 127/80; PULSE 95; RESP 15; TEMP 37.8; O2SAT 97
--- NOTE | 2022-11-09 12:15 | DI.CT_ITS ---
Exam(s) CT ABDOMEN PELVIS W EXAM: CT ABDOMEN PELVIS W CLINICAL HISTORY: B flank and back pain. TECHNIQUE: Imaging Protocol: Axial computed tomography images with coronal and sagittal reformatted images were created and reviewed CONTRAST MATERIAL: Intravenous: Omnipaque-350 100cc Oral: None COMPARISON: CT CT LUMBAR SPINE RECONS from 11/09/2022 FINDINGS: VISUALIZED LUNG BASES: No nodules nor pleural effusions evident. ABDOMEN: There is no ascites. Moderate size hiatal hernia noted. LIVER: There are no focal hepatic lesions evident. No dilated intrahepatic ducts. GALLBLADDER/BILIARY: No obvious gallbladder pathology. CBD is not dilated. PANCREAS: No evidence of pancreatic mass nor dilatation of the pancreatic duct. SPLEEN: Spleen is not enlarged. No obvious intrasplenic lesions. Splenic and portal veins are paten t. ADRENALS: There are no significant adrenal masses. KIDNEYS:No cysts evident. No solid renal masses. No calculi nor hydronephrosis.. ABDOMINAL AORTA: Abdominal aorta is not enlarged. LYMPH NODES:There is no retroperitoneal nor paraaortic adenopathy. ABDOMINAL WALL: No evidence of significant anterior abdominal wall nor inguinal hernia. GI: There is no evidence of bowel obstruction, free air, nor abscess. PELVIS: GI: No evidence of appendicitis.No evidence of sigmoid diverticulitis. LYMPH NODES: There is no intrapelvic nor inguinal adenopathy. REPRODUCTIVE: There is a fibroid in the anterior left side of the uterine fundus. No abnormal adnexa l findings. No free fluid. URINARY BLADDER: Mild relatively uniform thickening of the urinary bladder wall. May be related to c ystitis. There is no gas in the bladder wall. No radiopaque intraluminal calculi. OSSEOUS: No fractures and no significant osseous lesions. Schmorl's node invagination incidentally n oted in the superior endplate of L2 vertebral body. Multilevel degenerative disc disease chronic-type nature. IMPRESSION: 1. No acute findings in the abdomen and pelvis. 2. Hiatal hernia moderate size 3. Uterine fundal fibroid left of center 4. Urinary bladder wall thickening which is nonspecific and may be related to under distension versus cystitis. RADIATION DOSE DELIVERED: Total DLP DATA REPOSITORY: All CT scans at this facility are submitted to the National Radiology Data Registry (NRDR) Dose Index Registry (DIR) with the [employer] ([employer]). RADIATION OPTIMIZATION: All CT scans at this facility use at least one of these dose optimization te chniques: automated exposure control; mA and/or kV adjustment per patient size (includes targeted exa ms where dose is matched to clinical indication); or iterative reconstruction.
--- NOTE | 2022-11-09 12:25 | DI.CT_ITS ---
Exam(s) CT LUMBAR SPINE RECONS EXAM: CT LUMBAR SPINE RECONS CLINICAL HISTORY: midline back pain, recons only. TECHNIQUE: Imaging Protocol: Axial computed tomography images with coronal and sagittal reformatted images were created and reviewed COMPARISON: CT CT CHEST PE CTA from 07/25/2022 FINDINGS: Bones: Mild scoliosis in the upper lumbar spine.. No fractures. Multilevel chronic degenerative di sc disease noted as well as multilevel facet joint degenerative changes. No facet malalignment. Mos t prominent facet arthropathy is at L5-S1 level. No listhesis evident. There are no pars defects. IMPRESSION: 1. No acute osseous findings. No fractures. 2. Multilevel degenerative disc disease and degenerative facet arthropathy. 3. RADIATION DOSE DELIVERED: 828.11 mGy.cm Total DLP DATA REPOSITORY: All CT scans at this facility are submitted to the National Radiology Data Registry (NRDR) Dose Index Registry (DIR) with the [employer] ([employer]). RADIATION OPTIMIZATION: All CT scans at this facility use at least one of these dose optimization te chniques: automated exposure control; mA and/or kV adjustment per patient size (includes targeted exa ms where dose is matched to clinical indication); or iterative reconstruction.
--- NOTE | 2022-11-09 12:31 | ED.GENADUL_ITS ---
Discharge Plan Disposition Patient Disposition: Home Condition: Good Discharge Details Clinical Impression: Low back pain Primary Care Provider: Delia Saravia ED Provider: Cyn Arteaga Home Meds and New Rx's Prescriptions: Continued epinephrine [EpiPen 2-Papa] 0.3 MG/0.3 ML auto-injector 0.3 mg IJ DIRECTED Qty: 1 0RF Discharge Instructions Instructions: Low Back Strain (ED) Additional Instructions: Heat as discussed 20 minutes on and 20 minutes off. Try the ibuprofen 400 mg every 6 hours as needed for pain. Go easy lifting over the next week and try to protect her back is much as possible. If you have chills or shaking rigors please take your temperature. You need to return to the ED for fever of 100.4 or above with worsening back pain or any neurologic symptoms in her legs. Return also for any bowel or bladder dysfunction. Medical Decision Making Patient does not have a fever in the ED. Her labs are normal with the exception of a mildly elevated alk phos and CRP. CTs done with IV contrast show no evidence of hydronephrosis or acute spinal abnormality. I discussed all this extensively with the patient. We discussed differential diagnosis including discitis and epidural abscess. She really is not at high risk for either of these and with all the lifting she does this is likely just back pain. She promises to return for bowel or bladder dysfunction, fever of 100.4 or above, weakness or numbness in her legs, any other concerns including worsening pain. She understands that if she worsens she will need an MRI. She will take ibuprofen 400 mg every 6 hours as needed for pain and use heat. She did not want anything else in terms of prescriptions. She is nontoxic-appearing on discharge. Lab Data Lab results narrative: Patient CBC, lactate, and sed rate are all normal. Her comprehensive panel is normal with the exception of a mildly elevated alk phos. Her CRP is 5 which is mildly elevated. The patient's abdomen and pelvis CT with spine recons are negative for acute abnormalities. The patient does have thoracolumbar's spondylosis with disc disease and a small hiatal hernia at the GE junction. She also has a fibroid uterus and nonspecific bladder wall thickening. HPI General Date/Time Provider Initiated Documentation: 11/09/22 11:49 . HPI Narrative: This 77-year-old female patient presents with a chief complaint of bilateral lower back pain that began 4 days ago. Patient states that it began in her left flank area and was constant but worsened when she moved. She states it would wake her up when she sleeps. She took an old muscle relaxant thinking that this might help. 2 days ago the left side resolved but the right side began having the same pain. She took some Tylenol without relief. Yesterday she began having spine pain that worsened when it was palpated. She does do a lot of lifting at home as she cares for her little sister who has Downs syndrome and early onset dementia. She also has a barn with animals. She denies fever but says she had chills yesterday. She denies rigors. There are no radicular symptoms including numbness or weakness. She does say that over the past few days when she stands up she feels like she has to will her legs to walk. She has no perianal numbness. There is no bowel or bladder dysfunction. She has chronic constipation that is no different from baseline. She did take a MiraLAX a day or so ago and moved her bowels but this did not change the pain in her back. Pain is not made worse on inspiration. She has no hematuria or dysuria. Patient takes no medicines, does not use IV drugs, and is not diabetic. She has no back hardware. The patient declines pain medication in the ED. Related Data Home Medications Medication Instructions Recorded Confirmed epinephrine 0.3 mg/0.3 mL 0.3 mg (0.3 mL) IJ DIRECTED ##1 02/16/15 11/09/22 injection, auto-injector (EpiPen 2-Papa) Previous Rx's Medication Instructions Recorded epinephrine 0.3 mg/0.3 mL 0.3 mg (0.3 mL) IJ DIRECTED ##1 02/16/15 injection, auto-injector (EpiPen 2-Papa) Allergies Allergy/AdvReac Type Severity Reaction Status Date / Time shellfish derived Allergy Severe Anaphylaxsi Unverified 11/09/22 11:51 s venom-honey bee AdvReac Severe Anaphylaxsi Unverified 11/09/22 11:51 [bee venom (honey bee)] s stings Allergy Severe anaphylaxis Uncoded 11/09/22 11:51 General Stated Complaint: Nk/Back Pain SEAN: 3 Review of Systems Constitutional Constitutional: Reports chills (Had yesterday but denies rigors), Denies fever(s), Denies headache(s) and Denies weakness Eyes Eyes: Denies diplopia and Reports other (no redness) ENT Ears, Nose, Mouth, and Throat: Denies otalgia, Denies headache(s), Denies nasal congestion, Denies nasal discharge, Denies neck pain and Denies sore throat Cardiovascular Cardiovascular: Denies chest pain, Denies palpitations and Denies dyspnea Respiratory Respiratory: Denies cough and Denies dyspnea Gastrointestinal Gastrointestinal: Denies abdominal pain, Denies diarrhea, Denies nausea and Denies vomiting Genitourinary Genitourinary: Denies dysuria Musculoskeletal Musculoskeletal: Denies myalgias, Denies muscle weakness, Denies neck pain, Denies numbness and Reports other (edema) Comments: Has lower back pain Integumentary/Breasts Skin/Breast: Denies change in pigmentation and Denies rash Neurologic Neurologic: Denies headache(s), Denies numbness and Denies weakness Endocrine Endocrine: Denies palpitations PFSH All Active Problems (Updated 11/09/22 @ 15:18 by Cyn Arteaga MD) Low back pain (Acute) Odynophagia (Acute) Paralysis of left vocal cord (Acute) Supraglottitis without airway obstruction (Acute) Pharyngitis (Acute) Medical History No significant past medical history Surgical History S/P rotator cuff repair Social History Smoking/Tobacco Use Status: Never Smoking risk assessment performed?: Yes Alcohol Intake: current Alcohol Intake frequency: holidays/special occasions only Drug use: Never Do you feel safe at home: Yes Do you feel safe in your relationship?: Yes Exam Const General: no acute distress, well developed, well groomed and not in acute distress Nutritional Appearance: well nourished Orientation: alert and oriented x3 HENMT Head: normocephalic and atraumatic Ears: external ears normal Mouth: oropharynx normal and moist mucous membranes Throat: posterior oropharynx normal Eyes Conjunctivae: conjunctivae normal Neck Neck: full ROM and supple Chest Chest: normal inspection of the chest Resp Effort & Inspection: normal respiratory effort Auscultation: clear to auscultation bilaterally Cardio Rate: regular rate Rhythm: regular rhythm Heart Sounds: no murmurs and no rubs GI Inspection: normal to inspection Palpation: soft, nontender and other (non distended) Auscultation: normal bowel sounds Back/Spine/Pelvis Back: no CVA tenderness, back tenderness (From T12-L2 but most prominent at T12) and other (No rash) Skin General skin exam: no rashes or lesions noted and other (pink, warm, dry) Neuro General: patient alert, patient awake, patient oriented x3 and no focal motor deficits Speech: speech normal Gait: other (Slow starting, cautious appearing) Motor: strength 5/5 throughout (Bilateral lower extremities) and other (ELLIOTT) Sensory Exam: no sensory deficits noted (Bilateral lower extremities or perineum) DTR's: Rt Patellar: 2+, Lt Patellar: 2+, Rt Ankle: 1+ and Lt Ankle: 1+ Extrem General: normal to inspection, full ROM and pedal edema present Psych Mental Status: mental status grossly normal Speech and Movement: speech and movement normal Affect: normal affect Course Vital Signs Vital signs: Vital Signs Temperature 37.8 C H 11/09/22 11:48 Pulse 95 H 11/09/22 11:48 Respiratory Rate 15 11/09/22 11:48 Blood Pressure 127/80 11/09/22 11:48 Pulse Oximetry 97 11/09/22 11:48 Temperature 37.8 C H 11/09/22 11:48 Temperature Source Tympanic 11/09/22 11:48 Pulse 95 H 11/09/22 11:48 Respiratory Rate 15 11/09/22 11:48 Respiratory Effort Normal 11/09/22 11:51 Blood Pressure 127/80 11/09/22 11:48 Blood Pressure Position Sitting 11/09/22 11:48 Pulse Oximetry 97 11/09/22 11:48 Oxygen Delivery Method Room Air 11/09/22 11:48 Oxygen Flow Rate 0 11/09/22 11:48 Pain Level 8 11/09/22 11:48 Lab/Test Results Lab/Test Results: Patient's labs reveal a normal CBC, lactic acid, and sed rate. Comprehensive panel reveals an alk phos of 122 which is only mildly elevated. The patient's CRP is 5.
[2022-11-09 12:33] VITALS: TEMP 37.6
[2022-11-09 12:37] LABS: HCT 40.8 % (36.0-46.0); HGB 13.2 g/dL (11.2-15.7); Lactate 0.8 mmol/L (0.6-1.4); MCH 29.5 pg (27.0-33.0); MCHC 32.4 % (32.0-36.0); MCV 91 fL (80-95); MPV 9.2 fL (8.0-11.0); Platelet Count 232 10^3/uL (130-400); RBC 4.47 10^6/uL (3.93-5.22); RDW 13.5 % (11.7-14.6); RDW-SD 45.4 fL; WBC 9.73 10^3/uL (4.4-10.8)
[2022-11-09 12:39] LABS: ESR 18 mm/hr (0-30)
[2022-11-09 12:55] LABS: ALT 22 U/L (14-59); AST 19 U/L (15-37); Albumin 3.5 g/dL (3.4-5.0); Alkaline Phosphatase 122 U/L (46-116); Anion Gap 4.4 mmol/L (3-11); BUN 16 mg/dL (7-18); Bilirubin, Total 0.7 mg/dL (0.2-1.0); C-Reactive Protein 5.01 mg/dL (0.0-0.3); CO2 31.6 mmol/L (21.0-32.0); CREATININE 1.1 mg/dL (0.55-1.02); Calcium 9.2 mg/dL (8.5-10.1); Chloride 99 mmol/L (98-107); Estimated GFR 52.08 (mL/min/1.73m2); Glucose 98 mg/dL (74-106); Potassium 4.4 mmol/L (3.5-5.1); Sodium 135 mmol/L (136-145); Total Protein 7.9 g/dL (6.4-8.2)
[2022-11-09] MEDS: Normal Saline 1,000 ML 1000 ML IV (12:56)
[2022-11-09] MEDS: Normal Saline - Diluent 50 ML VIAL IJ (13:28)
[2022-11-09] MEDS: Omnipaque 350 MG/ML 100 ML BTL IJ (13:29)
[2022-11-09] MEDS: Normal Saline Flush 10 ML SYR IVP (13:29)
[2022-11-09 13:45] LABS: Bilirubin Negative (Negative); Blood Negative (Negative); Clarity Clear (Clear); Glucose Negative (Negative); Ketones Negative (Negative); Leukocyte Esterase Negative (Negative); Nitrite Negative (Negative); Urobilinogen 0.2 mg/dL (Up to 0.2); pH 6.5 (5-8)
[2022-11-09 14:01] VITALS: BP 134/62; O2SAT 98
--- NOTE | 2022-11-09 14:20 | DI.VRAD_ITS ---
PROCEDURE INFORMATION: Exam: CT Abdomen And Pelvis With Contrast Exam date and time: 11/09/2022 1:19 PM Age: 77 years old Clinical indication: Other: Flank and back pain TECHNIQUE: Imaging protocol: Computed tomography of the abdomen and pelvis with contrast. Radiation optimization: All CT scans at this facility use at least one of these dose optimization techniques: automated exposure control; mA and/or kV adjustment per patient size (includes targeted exams where dose is matched to clinical indication); or iterative reconstruction. Contrast material: OMNIPAQUE 350; Contrast volume: 98 ml; Contrast route: INTRAVENOUS (IV); COMPARISON: CT CHEST PE CTA 07/25/2022 6:03 PM FINDINGS: Lungs: There is mild dependent atelectasis at the lung bases. Liver: The no focal intrahepatic abnormality is identified. Gallbladder and bile ducts: No calcified gallstones. No significant biliary ductal dilatation Pancreas: Pancreas is unremarkable Spleen: Spleen is unremarkable Adrenal glands: Mild adrenal thickening. No discrete adrenal mass. Kidneys and ureters: No radiopaque urinary tract calculi. No hydronephrosis. No discrete renal cortical mass. Stomach and bowel: Non-opacified loops of bowel are unremarkable. No bowel obstruction. No discrete mass or pneumatosis. There is small hiatal hernia at the GE junction which was previously noted. The the Appendix: No evidence of acute appendicitis. Intraperitoneal space: No free fluid focal collections or free intraperitoneal air. The Vasculature: Aorta is nonaneurysmal. Plaque is noted. Lymph nodes: No significant adenopathy Urinary bladder: There is mild bladder wall thickening which is nonspecific is a bladder is not completely distended. No radiopaque calculi are identified. Reproductive: The uterus is mildly heterogeneous. There is apparent fibroid anteriorly on the left. There is no significant adnexal abnormality Bones/joints: Lumbar CT is dictated as a separate report. There are findings consistent with thoracic, lumbar spondylosis, degenerative disc disease. No acute bony abnormality is identified. There is mild scoliosis convex to the left at the thoracolumbar junction. Soft tissues: Subcutaneous soft tissues are unremarkable. IMPRESSION: 1. No acute findings. 2. Thoracolumbar spondylosis, disc disease. 3. Small hiatal hernia at the GE junction 4. Fibroid uterus 5. Mild bladder wall thickening but this is nonspecific as the bladder is not completely distended. Correlate clinically for cystitis. Dictated and Authenticated by: Carrol Soni MD. Ordering:BC Addison MD
--- NOTE | 2022-11-09 14:24 | DI.VRAD_ITS ---
PROCEDURE INFORMATION: Exam: CT Lumbar Spine Without Contrast Exam date and time: 11/09/2022 1:19 PM Age: 77 years old Clinical indication: Other: Midline back pain TECHNIQUE: Imaging protocol: Computed tomography of the lumbar spine without contrast. Radiation optimization: All CT scans at this facility use at least one of these dose optimization techniques: automated exposure control; mA and/or kV adjustment per patient size (includes targeted exams where dose is matched to clinical indication); or iterative reconstruction. COMPARISON: No relevant prior studies available. FINDINGS: Bones/joints: There is mild scoliosis convex to the left at the thoracolumbar junction. It is convex to the right in the lower lumbar spine. Alignment is otherwise unremarkable. The bony structures are mildly osteopenic. There is no evidence of an acute fracture. There is no decrease of vertebral body height. There is no acute or destructive bony abnormality. There is mild disc space narrowing noted at multiple levels within the lumbar, thoracic spine. Vacuum phenomenon is noted. There are bulges spondylitic changes of the endplates, facet arthropathy. There is no high-grade central spinal stenosis. There is mild foraminal narrowing. This appears most prominent on the left at L3-L4, L4-L5. Soft tissues: For further evaluation of the abdomen, pelvis please see the abdomen and the the the the the pelvic CT dictated separately. IMPRESSION: No acute findings. Mild thoracolumbar spondylosis, disc disease. Dictated and Authenticated by: Crarol Soni MD. Ordering:BC Addison MD
== END 2022-11-09 15:32 | disposition home or self-care (01) ==
PROVIDERS: Emergency Provider Emergency Medicine; PCP Nurse Practitioner Family
DX: M54.59 Other low back pain (principal)
CPT/HCPCS: 80053; 85027; 85652; 96360; 96361; 99285; 74177; 81003; 83605; 86140; 99283; J3490

== ENCOUNTER 2023-10-22 16:26 | Outpatient (REF) | payer MEDICARE, SELFPAY ==
[2023-10-22 16:03] LABS: Abs Immature Grans 0.02 10^3/uL (0.0-0.06); Absolute Basophil Count 0.06 10^3/uL (0.0-0.2); Absolute Eosinophil Count 0.24 10^3/uL (0.0-0.7); Absolute Lymphocyte Count 1.83 10^3/uL (1.2-3.4); Absolute Monocyte Count 0.28 10^3/uL (0.1-0.8); Absolute Neutrophil Count 3.87 10^3/uL (1.2-6.7); Eosinophils % 3.8; HCT 39.2 % (36.0-46.0); HGB 12.9 g/dL (11.2-15.7); Immature Grans % 0.3; MCH 29.5 pg (27.0-33.0); MCHC 32.9 % (32.0-36.0); MCV 90 fL (80-95); MPV 10.2 fL (8.0-11.0); Monocytes % 4.4; Neutrophils % 61.5; Platelet Count 271 10^3/uL (130-400); RBC 4.37 10^6/uL (3.93-5.22); RDW 13.4 % (11.7-14.6); RDW-SD 44.3 fL
[2023-10-22 16:44] LABS: ALT 29 U/L (14-59); AST 21 U/L (15-37); Albumin 3.5 g/dL (3.4-5.0); Alkaline Phosphatase 88 U/L (46-116); Anion Gap 8.6 mmol/L (3-11); BUN 22 mg/dL (7-18); Bilirubin, Total 0.4 mg/dL (0.2-1.0); CO2 27.4 mmol/L (21.0-32.0); CREATININE 0.9 mg/dL (0.55-1.02); Calcium 9.1 mg/dL (8.5-10.1); Chloride 106 mmol/L (98-107); Estimated GFR 65.84 (mL/min/1.73m2); Glucose 93 mg/dL (74-106); Potassium 4.5 mmol/L (3.5-5.1); Sodium 142 mmol/L (136-145); Total Protein 7.2 g/dL (6.4-8.2)
[2023-10-22 17:05] LABS: Hemoglobin A1C 5.9 % (<5.7)
[2023-10-22 17:38] LABS: Vitamin D 25 Total 32.6 ng/mL (30-100)
== END 2023-10-22 16:27 | disposition home or self-care (01) ==
LOC: NCHCN 16:26
PROVIDERS: PCP Nurse Practitioner Family; Visit Provider Nurse Practitioner Family
DX: Z00.00 Encounter for general adult medical examination without abnormal findings (principal)
CPT/HCPCS: 80053; 82306; 83036; 85025

== ENCOUNTER → 2023-11-19 04:40 | Outpatient (CLI) | payer MEDICARE, SELFPAY ==
--- NOTE | 2023-11-19 | DI.MAMMO_ITS ---
Exam(s) MAMMO SCREENING EXAM: MAMMO SCREENING CLINICAL HISTORY: Z12.31 Screening. TECHNIQUE: Bilateral full field digital CC and MLO mammographic images were obtained with 3D tomosyn thesis and utilizing computer aided detection (CAD). COMPARISON: Prior mammograms were reviewed. FINDINGS: There has been no significant change in the appearance and distribution of the fibroglandular tissue. There are no new spiculated masses nor malignant appearing microcalcification groups. There is no significant architectural distortion nor skin thickening-retraction. IMPRESSION: No radiographic evidence of malignancy. BI-RADS Category 1 - Negative Breast Density - Category B - Scattered areas of fibroglandular density Breast density Category C or D implies that the patient has dense breast tissue. Dense breast tissue can make it harder to find cancer on a mammogram. Dense breast tissue is also associated with an incr eased risk of breast cancer. This information about the result of the mammogram report was provided to the patient to raise their awareness. Use this report when you speak with the patient about their risks for breast cancer, which includes their family history. At that time, you may recommend additional screening tests (Ultrasoun d or MRI) as these tests may add significant information. A negative radiographic report should not delay biopsy if a dominant or clinically suspicious mass is present. Up to ten percent of cancers are not identified on mammography. A negative report may reinforce clinical impression. Adenosis and dense breasts may obscure an underlying neoplasm. False positive reports average 6 to 10%. Patient will receive a letter notifying them of these results.
--- NOTE | 2023-11-19 | DI.DEXA_ITS ---
Exam(s) XR DEXA BONE DENSITY W/WO ROLANDA EXAM: XR DEXA BONE DENSITY W/WO ROLANDA CLINICAL HISTORY: Z78.0 Asymptomatic menopausal state,SCREENING FOR OSTEOPOROSIS TECHNIQUE: COMPARISON: No exams were available for comparison FINDINGS: Lateral Spine Image: Unremarkable. No compression deformities identified. Left hip: Total T-Score: -1.4 Total Z-Score: 0.6 T- and Z-scores: Findings are consistent with osteopenia. Lumbar Spine: Total T-Score: 0.9 Total Z-Score: 3.5 T- and Z-scores: Within normal limits. IMPRESSION: No evidence of osteoporosis.
== END ==
PROVIDERS: PCP Nurse Practitioner Family; Visit Provider Nurse Practitioner Family
DX: Z78.0 Asymptomatic menopausal state (principal); Z12.2 Encounter for screening for malignant neoplasm of respiratory organs; Z13.820 Encounter for screening for osteoporosis
CPT/HCPCS: 77063; 77067; 77080

== ENCOUNTER 2024-12-12 12:15 | Outpatient (REF) | payer MEDICARE, SELFPAY ==
[2024-12-12 16:54] LABS: Anion Gap 5.9 mmol/L (3-11); BUN 16 mg/dL (7-18); CO2 30.1 mmol/L (21.0-32.0); CREATININE 0.9 mg/dL (0.55-1.02); Calculated LDL 122 mg/dL (<100); Chloride 105 mmol/L (98-107); Cholesterol 201 mg/dL (<200); Estimated GFR 65.44 (mL/min/1.73m2); Glucose 92 mg/dL (74-106); HDL Cholesterol 71 mg/dL (>or=50); Sodium 141 mmol/L (136-145); Triglyceride 42 mg/dL (<150)
[2024-12-12 19:35] LABS: Hemoglobin A1C 5.8 % (<5.7)
== END 2024-12-12 12:16 | disposition home or self-care (01) ==
LOC: NCHCN 12:15
PROVIDERS: PCP Nurse Practitioner Family; Visit Provider Nurse Practitioner Family
DX: Z00.00 Encounter for general adult medical examination without abnormal findings (principal); R73.03 Prediabetes
CPT/HCPCS: 80048; 80061; 83036